=== PATIENT | male | born 1960 | race Caucasian/White ===

== ENCOUNTER 2016-06-27 09:25 | Emergency (ER) | payer OTHER ==
[2016-06-27 09:40] VITALS: BP 168/96
[2016-06-27] MEDS ORDERED: Sodium Chloride 0.9% 10 ML Syringe FLUSH PRN (10:13)
[2016-06-27] MEDS ORDERED: Sodium Chloride 0.9% 1,000 ML IV SCH (10:15)
[2016-06-27] MEDS ORDERED: Iopamidol 755 Mg/ML 100 ML Bottle IVPUSH ONE (10:17)
[2016-06-27] MEDS ORDERED: Sodium Chloride 0.9% 10 ML Syringe FLUSH ONE (10:17)
[2016-06-27] MEDS ORDERED: Sodium Chloride 0.9% 100 ML IV SCH (10:30)
--- NOTE | 2016-06-27 10:42 | CT ---
Head CT Technique: Multiple axial sections through the brain were obtained. Intravenous contrast was not utilized. Comparison: No previous intracranial imaging. Findings: Ventricles along with basal cisterns and sulci over the convexities are within normal limits for the patient's age. No abnormal parenchymal densities are seen. No evidence of intracranial hemorrhage. No midline shift or mass effect is seen. Bone window settings were reviewed which shows no acute calvarial abnormality. Mastoid sinuses and middle ear cavities are clear. Visualized paranasal sinuses are also clear. Impression: 1. No abnormality is identified on noncontrast head CT exam. Diagnostic code #1
--- NOTE | 2016-06-27 11:38 | EDM.PDOC ---
ED HPI SEIZURE COMPLAINT - General Chief Complaint: Neurological Problem Stated Complaint: DIZZY, LIGHT HEADED Time Seen by Provider: 06/27/16 09:52 Source of Information: Reports: Patient, Family History Limitations: Reports: No limitations - History of Present Illness INITIAL COMMENTS - FREE TEXT/NARRATIVE: The patient presents with a chief complaint of syncope. On Monday he had a few friends and family over and he had a couple beers. He passed out for a few seconds on his kitchen table. He was pale when he woke up and slightly confused for a short time. He does not remember passing out. He had no headache, chest pain, shortness of breath, nausea, vomiting, diarrhea, fever, chills, or cough. He says in April he was removing a connection to a large hose and it slipped and he developed some pain in his left anterior chest. He went to the occupational health clinic and they felt he pulled a muscle. He said it took about a month for that to get better. He still has some pain to the left chest but it is improved. He did not feel right all weekend and this morning he went to work and he was sitting down at work and felt a little lightheaded and when he got up and down at work. He came here to be evaluated. No seizure activity was noted when he passed out on Monday. He is diabetic and his blood sugar was 98 when he passed out. Timing/Duration: Reports: day(s): (3) Event Occurred (Where): home Event (Witnessed/Unwitnessed): witnessed Severity: moderate Context: Denies: recent ETOH, new/change in medications, missed med dose(s), illness, trauma, photo stimulation, activity/exercise - Related Data Allergies/ADRs: Allergies Allergy/AdvReac Type Severity Reaction Status Date / Time No Known Allergies Allergy Verified 06/27/16 09:40 Home Meds: Home Meds Allopurinol [Zyloprim] 100 mg PO DAILY 06/27/16 [History] Aspirin [Ecotrin] 81 mg PO DAILY 06/27/16 [History] Cholecalciferol (Vitamin D3) [Vitamin D] 1,000 mg PO DAILY 06/27/16 [History] Lisinopril [Prinivil] 20 mg PO DAILY 06/27/16 [History] Magnesium 250 mg PO DAILY 06/27/16 [History] Saxagliptin HCl [Onglyza] 2.5 mg PO DAILY 06/27/16 [History] atorvaSTATin [Lipitor] 20 mg PO DAILY 06/27/16 [History] glyBURIDE,Micronized [Glynase] 3 mg PO BID 06/27/16 [History] metFORMIN HCl [Glucophage] 1,000 mg PO BID 06/27/16 [History] Past Medical History Cardiovascular History: Reports: High cholesterol Endocrine/Metabolic History: Reports: Diabetes, type II Other Endocrine/Metabolic History: gout - Past Surgical History GI Surgical History: Reports: Colonoscopy Social & Family History - Tobacco Use Smoking Status *Q: Never Smoker Second Hand Smoke Exposure: No - Caffeine Use Caffeine Use: Reports: Coffee - Recreational Drug Use Recreational Drug Use: No ED ROS GENERAL - Review of Systems Review Of Systems: See Below Constitutional: Reports: no symptoms HEENT: Reports: No symptoms Respiratory: Reports: No Symptoms Cardiovascular: Reports: Chest pain (Left side), Lightheadedness, Syncope Endocrine: Reports: no symptoms GI/Abdominal: Reports: No symptoms : Reports: no symptoms Musculoskeletal: Reports: no symptoms Skin: Reports: no symptoms Neurological: Reports: No Symptoms Psychiatric: Reports: No symptoms - Physical Exam Exam: See Below Exam Limited By: No limitations General Appearance: alert, no apparent distress Eye Exam: bilateral eye: EOMI, PERRL Ears: normal external exam, normal canal, normal TMs Nose: normal inspection Throat/Mouth: Normal inspection Head Exam: atraumatic, normocephalic Neck: normal inspection Respiratory/Chest: no respiratory distress, lungs clear, normal breath sounds Cardiovascular: regular rate, rhythm, no edema, no murmur GI/Abdominal: soft, non tender, no organomegaly, no mass Neuro Exam (Abbreviated): alert, oriented, no motor/sensory deficits Back Exam: normal inspection Extremities: normal inspection EKG INTERPRETATION EKG Date: 06/27/16 Time: 10:25 Rhythm: NSR Rate (beats/min): 83 [place]: normal P-wave: present QRS: RBBB ST-T: normal QT: normal Course - Vital Signs Last Recorded V/S: Last Vital Signs Temp 98.4 F 06/27/16 09:36 Pulse 93 06/27/16 09:36 Resp 12 06/27/16 09:36 BP 168/96 H 06/27/16 09:36 Pulse Ox 99 06/27/16 09:36 - Orders/Labs/Meds Orders: Active Orders 24 hr Category Date Time Status Cardiac Monitoring [RC] . DIRECTED Care 06/27/16 10:13 Active EKG Documentation Completion [RC] STAT Care 06/27/16 10:13 Active Holter Monitor 48 Hours [RC] .PRN Care 06/27/16 12:31 Active Peripheral IV Care [RC] . DIRECTED Care 06/27/16 10:13 Active Sodium Chloride 0.9% [Normal Saline] 1,000 ml Med 06/27/16 10:15 Active IV ASDIRECTED Sodium Chloride 0.9% [Normal Saline] 100 ml Med 06/27/16 10:30 Active IV ASDIRECTED Sodium Chloride 0.9% [Saline Flush] Med 06/27/16 10:13 Active 10 ml FLUSH ASDIRECTED PRN Peripheral IV Insertion Adult [OM.PC] Stat Oth 06/27/16 10:13 Ordered Medication Orders Sodium Chloride (Normal Saline) 1,000 mls @ 125 mls/hr IV ASDIRECTED GENARO Last Admin: 06/27/16 10:49 Dose: 125 mls/hr Sodium Chloride (Normal Saline) 100 mls @ 60 mls/hr IV ASDIRECTED GENARO Last Admin: 06/27/16 11:25 Dose: 60 mls/hr Sodium Chloride (Saline Flush) 10 ml FLUSH ASDIRECTED PRN PRN Reason: Keep Vein Open Last Admin: 06/27/16 11:25 Dose: 10 ml Labs: Laboratory Tests 06/27/16 06/27/16 Range/Units 10:42 10:42 WBC 7.05 (4.23-9.07) K/mm3 RBC 4.32 L (4.63-6.08) M/mm3 Hgb 13.0 L (13.7-17.5) gm/L Hct 38.4 L (40.1-51.0) % MCV 88.9 (79.0-92.2) fl MCH 30.1 (25.7-32.2) pg MCHC 33.9 (32.2-35.5) g/dl RDW Std Deviation 38.5 (35.1-43.9) fL Plt Count 228 (163-337) K/mm3 MPV 8.4 L (9.4-12.3) fl Neut % (Auto) 67.4 (34.0-67.9) % Lymph % (Auto) 24.4 (21.8-53.1) % [place] % (Auto) 6.1 (5.3-12.2) % Eos % (Auto) 1.1 (0.8-7.0) Baso % (Auto) 0.9 (0.1-1.2) % Neut # (Auto) 4.75 (1.78-5.38) K/mm3 Lymph # (Auto) 1.72 (1.32-3.57) K/mm3 [place] # (Auto) 0.43 (0.30-0.82) K/mm3 Eos # (Auto) 0.08 (0.04-0.54) K/mm3 Baso # (Auto) 0.06 (0.01-0.08) K/mm3 Sodium 138 (136-145) mEq/L Potassium 4.6 (3.5-5.1) mEq/L Chloride 102 (98-107) mEq/L Carbon Dioxide 25 (21-32) mEq/L Anion Gap 15.6 H (5-15) BUN 16 (7-18) mg/dL Creatinine 1.1 (0.7-1.3) mg/dL Est Cr Clr Drug Dosing 74.09 mL/min Estimated GFR (MDRD) > 60 (>60) mL/min BUN/Creatinine Ratio 14.5 (14-18) Glucose 186 H (74-106) mg/dL Calcium 9.0 (8.5-10.1) mg/dL Total Bilirubin 0.3 (0.2-1.0) mg/dL AST 23 (15-37) U/L ALT 49 (16-63) U/L Alkaline Phosphatase 50 (46-116) U/L Troponin I < 0.017 (0.00-0.056) ng/mL Total Protein 7.4 (6.4-8.2) g/dl Albumin 4.1 (3.4-5.0) g/dl Globulin 3.3 gm/dL Albumin/Globulin Ratio 1.2 (1-2) Meds: Medications Generic Name Dose Route Start Last Admin Trade Name Freq PRN Reason Stop Dose Admin Sodium Chloride 1,000 mls @ 125 mls/hr 06/27/16 10:15 06/27/16 10:49 Normal Saline IV 125 mls/hr ASDIRECTED GENARO Administration Sodium Chloride 100 mls @ 60 mls/hr 06/27/16 10:30 06/27/16 11:25 Normal Saline IV 60 mls/hr ASDIRECTED GENARO Administration Sodium Chloride 10 ml 06/27/16 10:13 06/27/16 11:25 Saline Flush FLUSH 10 ml ASDIRECTED PRN Administration Keep Vein Open Discontinued Medications Generic Name Dose Route Start Last Admin Trade Name Bert PRN Reason Stop Dose Admin Iopamidol 100 ml 06/27/16 10:17 06/27/16 11:24 [id number] (76%) IVPUSH 06/27/16 10:18 100 ml ONETIME ONE Administration Sodium Chloride 10 ml 06/27/16 10:17 06/27/16 10:45 Saline Flush FLUSH 06/27/16 10:18 10 ml ONETIME ONE Administration - Re-Assessments/Exams Free Text/Narrative Re-Assessment/Exam: 06/27/16 12:32 I ordered an IV NS at 125mL/hr, labs, EKG, CT of his head and CT of his chest. His EKG shows a NSR and RBBB. I have asked for an old EKG but [facility] has not called me back. The CT of his head shows nothing acute. His CBC and CMP look good. His troponin was negative. The CT of his chest shows mildly displaced left-sided rib fractures with minimal nonbridging callus. Fractures involve the left fourth, fifth and sixth ribs. No findings of pulmonary embolism. Mild coronary artery calcification is seen. He is doing good now. I will get him a holter monitor and he will need to have some work restrictions for a week or more. I will have him follow up with Dr Martinez in 1 week. 06/27/16 12:44 She can see him on Monday at 2pm. Departure - Departure Time of Disposition: 12:40 Disposition: Home, Self-Care 01 Condition: good Clinical Impression: Syncope Qualifiers: Syncope type: unspecified Qualified Code(s): R55 - Syncope and collapse Multiple rib fractures Qualifiers: Encounter type: sequela Fracture type: closed Laterality: left Qualified Code(s ): S22.42XS - Multiple fractures of ribs, left side, sequela Referrals: Farzaneh Martinez MD [Primary Care Provider] - 1 Week (2pm on Monday the ) Forms: ED Department Discharge Additional Instructions: Wear the holter monitor for 48 hours. Take tylenol or motrin for pain. Avoid lifting over 8 pounds for 1 week. Follow up with Dr Martinez on Monday at 2pm. Please return if you are worse such as more chest pain, shortness of breath, passing out or more lightheadedness. - My Orders Last 24 Hours: My Active Orders 06/27/16 10:13 Cardiac Monitoring [RC] . DIRECTED EKG Documentation Completion [RC] STAT Peripheral IV Care [RC] . DIRECTED Sodium Chloride 0.9% [Saline Flush] 10 ml FLUSH ASDIRECTED PRN Peripheral IV Insertion Adult [OM.PC] Stat 06/27/16 10:15 Sodium Chloride 0.9% [Normal Saline] 1,000 ml IV ASDIRECTED 06/27/16 10:30 Sodium Chloride 0.9% [Normal Saline] 100 ml IV ASDIRECTED 06/27/16 12:31 Holter Monitor 48 Hours [RC] .PRN - Assessment/Plan Last 24 Hours: My Active Orders 06/27/16 10:13 Cardiac Monitoring [RC] . DIRECTED EKG Documentation Completion [RC] STAT Peripheral IV Care [RC] . DIRECTED Sodium Chloride 0.9% [Saline Flush] 10 ml FLUSH ASDIRECTED PRN Peripheral IV Insertion Adult [OM.PC] Stat 06/27/16 10:15 Sodium Chloride 0.9% [Normal Saline] 1,000 ml IV ASDIRECTED 06/27/16 10:30 Sodium Chloride 0.9% [Normal Saline] 100 ml IV ASDIRECTED 06/27/16 12:31 Holter Monitor 48 Hours [RC] .PRN
--- NOTE | 2016-06-27 11:52 | CT ---
CT chest Technique: Multiple axial sections were obtained through the chest. Intravenous contrast was therefore utilized. Comparison: No previous chest imaging is available. Findings: Pulmonary arteries are moderately well-opacified. No filling defects are seen to indicate pulmonary embolism. Mild coronary artery calcification is seen. No pericardial thickening is seen. Mediastinum and hilar regions show no adenopathy or mass. No axillary adenopathy is seen. Visualized upper abdominal structures are within normal limits. Lungs are clear. No pleural effusions are seen. Bone window settings were reviewed which shows mildly displaced and subacute rib fractures within the left chest involving the fourth, fifth and sixth ribs. Impression: 1. Mildly displaced left-sided rib fractures with minimal nonbridging callus. Fractures involve the left fourth, fifth and sixth ribs. 2. No findings of pulmonary embolism. 3. Mild coronary artery calcification is seen. Diagnostic code #3
== END 2016-06-27 13:12 | disposition home or self-care (01) ==
LOC: JD.ED 09:25
DX: R55 Syncope and collapse (principal); S22.42XA Multiple fractures of ribs, left side, initial encounter for closed fracture; E11.9 Type 2 diabetes mellitus without complications; Z79.84 Long term (current) use of oral hypoglycemic drugs; E78.00 Pure hypercholesterolemia, unspecified; X58.XXXA Exposure to other specified factors, initial encounter
CPT/HCPCS: 36415; 70450; 71275; 80053; 84484; 85025; 93005; 93225; 93226; 96360; 96361; 99285; J7030; J7040; J7050; Q9967